=== PATIENT | male | born 1975 | race Caucasian/White ===

== ENCOUNTER 2025-07-02 09:12 | Emergency (ER) | payer OTHER ==
[2025-07-02] MEDS ORDERED: predniSONE 20 MG TAB ONE (09:43)
== END 2025-07-02 09:54 | disposition home or self-care (01) ==
LOC: BURERS 09:12
DX: T78.40XA Allergy, unspecified, initial encounter (principal); E11.9 Type 2 diabetes mellitus without complications; Z79.85 Long-term (current) use of injectable non-insulin antidiabetic drugs
CPT/HCPCS: 99282; J7512